=== PATIENT | female | born 1940 | race Caucasian/White ===

== ENCOUNTER → 2020-08-30 09:08 | Outpatient (CLI) | payer MEDICARE, OTHER, SELFPAY ==
[2020-08-30 19:03] LABS: BUN Creatinine Ratio 26.1 (6-22); Blood Urea Nitrogen 18 mg/dL (7-17); Calcium 9.7 mg/dL (8.4-10.2); Carbon Dioxide 35 mmol/L (22-32); Chloride 99 mmol/L (98-107); Estimated Glomerular Filt Rate > 60.0 mL/min (>60); Glucose 103 mg/dL (80-110); HEMOLYSIS < 15 (0-50); Potassium 4.3 mmol/L (3.4-5.1); Sodium 139 mmol/L (137-145)
== END ==
PROVIDERS: Visit Provider Internal Medicine Cardiovascular Disease
DX: R60.0 Localized edema (principal)
CPT/HCPCS: 80048

== ENCOUNTER → 2021-04-01 10:31 | Outpatient (CLI) | payer MEDICARE, SELFPAY ==
[2021-04-01 19:27] LABS: BUN Creatinine Ratio 27.4 (6-22); Blood Urea Nitrogen 20 mg/dL (7-17); Calcium 9.9 mg/dL (8.4-10.2); Carbon Dioxide 39 mmol/L (22-32); Chloride 99 mmol/L (98-107); Estimated Glomerular Filt Rate > 60.0 mL/min (>60); Glucose 121 mg/dL (80-110); HEMOLYSIS 28 (0-50); Potassium 4.5 mmol/L (3.4-5.1); Sodium 138 mmol/L (137-145)
== END ==
PROVIDERS: Visit Provider Internal Medicine Cardiovascular Disease
DX: I48.20 Chronic atrial fibrillation, unspecified (principal)
CPT/HCPCS: 80048

== ENCOUNTER 2021-05-29 10:49 | Emergency (ER) | payer MEDICARE, SELFPAY ==
[2021-05-29] VITALS (10 sets, daily range): BP systolic 122–145; BP diastolic 70–91; PULSE 73–94; RESP 18–30; TEMP 36.6; O2SAT 86–96; BMI 39.3
--- NOTE | 2021-05-29 11:03 | DI.RAD.S_ITS ---
PROCEDURE: XR CHEST 2V INDICATIONS: shortness of breath TECHNIQUE: 2 views of the chest were acquired. COMPARISON: [facility] ([email or web address]), CR, XR CHEST 2V, 05/28/2021, 16:33. FINDINGS: Surgical changes and devices: None. Lungs and pleura: Lungs are clear. No pleural effusions or pneumothorax. Mediastinum: Mediastinal contours are normal. Heart size is normal. Bones and chest wall: No suspicious bony abnormalities. Elevation of the right diaphragm. IMPRESSION: No acute cardiopulmonary abnormality. Dictated by: Roni Guerrero M.D. on 05/29/2021 at 11:40 Approved by: Roni Guerrero M.D. on 05/29/2021 at 11:40
[2021-05-29 11:27] LABS: Add Manual Diff / Slide Review NO; Basophils Absolute Auto 0 /uL (0-100); Basophils Percent Auto 0.3 % (0-2); Eosinophils Absolute Auto 0 /uL (0-450); Eosinophils Percent Auto 0.6 % (2-4); Hematocrit 42.5 % (36-46); Hemoglobin 14.3 g/dL (12.0-16.0); Lymphocytes Absolute Auto 1100 /uL (1100-4500); Lymphocytes Percent Auto 21.2 % (25-40); Mean Corpuscular HGB Conc 33.5 % (30-36); Mean Corpuscular Hemoglobin 33.5 PG (26-34); Monocytes Absolute Auto 500 /uL (0-900); Monocytes Percent Auto 9.5 % (3-14); Neutrophils Absolute Auto 3500 /uL (1500-7000); Neutrophils Percent Auto 68.4 % (50-75); Platelet Count 166 X10^3/uL (150-400); Red Blood Cell Count 4.25 X10^6/uL (4.0-5.2); Red Cell Distribution Width 13.4 % (11.6-14.8); White Blood Cell Count 5.1 X10^3/uL (4.5-11.0)
--- NOTE | 2021-05-29 11:31 | ED.SOB ---
HPI - SOB/Dyspnea General Chief Complaint: Shortness of Breath/Dyspnea Stated Complaint: Difficulty breathing x few days Time Seen by Provider: 05/29/21 11:07 History of Present Illness HPI Narrative: Patient is an 80-year-old female who has history of atrial fibrillation on Xarelto history of congestive heart failure taking torsemide 20-40 mg daily presenting today with increasing shortness of breath. She actually says that she has had increasing shortness of breath over the last few weeks but definitely worse over last few days. She had a chest x-ray done on the urine yesterday had congestive heart failure sent here for further evaluation. She does have increasing shortness of breath with exertion she denies any orthopnea. She has not noted any significant swelling in her legs so she did not think it was congestive heart failure. Her left leg is always more swollen than her right. She has not have productive cough fever or body aches. She denies any hemoptysis. She has no chest pain no palpitations. Patient was seen by Dr. Fleming her product safety head on 03/19/2021 at the time is recommended that she increase her torsemide from 30 mg to 40 mg. She initially had diastolic failure however he thought probably new systolic failure with increasing shortness of breath. Also recommended a nuclear stress test, which was on 03/20/2021 which was read as normal and low risk study Related Data Home Medications Medication Instructions Recorded Confirmed rivaroxaban 20 mg tablet 20 mg PO DAILY 07/14/20 05/28/21 losartan 25 mg tablet 25 mg PO DAILY 07/15/20 05/28/21 metoprolol succinate 50 mg 50 mg PO DAILY 07/15/20 05/28/21 tablet,extended release 24 hr potassium chloride 20 mEq 20 meq PO DAILY 05/28/21 05/28/21 tablet,extended release torsemide 20 mg tablet 40 mg PO DAILY tab 05/28/21 05/28/21 Previous Rx's Medication Instructions Recorded albuterol sulfate 90 mcg/actuation 1 puff INH QID PRN #1 inh 07/13/16 aerosol inhaler (Proventil HFA) mometasone (Asmanex Twisthaler) 440 mcg IH QDAY #60 inh 11/05/16 clobetasol 0.05 % scalp solution 1 applic TOPICAL BID PRN #50 ml 05/26/21 doxycycline hyclate 100 mg tablet 100 mg PO BID 10 Days #20 tab 05/28/21 Allergies Allergy/AdvReac Type Severity Reaction Status Date / Time Penicillins [PENICILLINS] Allergy Severe ANAPHYLAXIS Verified 05/29/21 11:41 rofecoxib [ROFECOXIB] Allergy Severe EDEMA, Verified 05/29/21 11:41 SOB/CHF Review of Systems Review of Systems Narrative: GENERAL: Denies chills, fatigue, malaise, fever, sweats, travel HEENT: Denies sinus pain, ear pain, sore throat, difficulty swallowing, neck pain RESPIRATORY: see HPI CARDIOVASCULAR: Denies chest pain, palpitations, orthopnea, edema GASTROINTESTINAL: Denies nausea, vomiting, abdominal pain, diarrhea, constipation, melena. : Denies dysuria, frequency, incontinence, hematuria, urinary retention, flank pain. MUSCULOSKELETAL: Denies weakness, joint pain, or bony pain SKIN: No rash, no erythema, no pruritus NEUROLOGIC: Denies weakness, dizziness, headache, numbness, change in speech, confusion PSYCHIATRIC: No concerning psychosocial issues. 12 point review of systems is negative except for those stated above and HPI Patient History Medical History Allergies Asthma Cataracts, bilateral (~2014) Chicken pox (~194) Chronic back pain (~2009) Colon polyps (~1999) Foot pain (~2019) Hearing loss (~2014) Hemorrhoid (~1962) History of urinary incontinence (~2009) Measles (~194) Mumps (~194) Obstructive sleep apnea syndrome (10/16/14) Osteoarthritis Rubella (~194) Seborrhea capitis Surgical History Anesthesia History of arthroscopy of both knees History of colectomy (~2009) Presence of artificial knee joint, bilateral Family History Mother Cancer Brother Diabetes mellitus Sister Cancer Social History Smoking Status: Never smoker Smoking Status: Never smoker Exam Initial Vital Signs Initial Vital Signs: Vital Signs Pulse Rate 94 H 05/29/21 11:05 Respiratory Rate 18 05/29/21 11:05 Blood Pressure 133/91 H 05/29/21 11:05 Pulse Oximetry 93 05/29/21 11:05 GENERAL: Alert pleasant 80-year-old female no acute distress in no acute distress. HEENT: Head atraumatic,EOMI, pupils reactive, face symmetric, moist mucous membranes CARDIOVASCULAR: Regular rate and rhythm without murmurs, rubs or gallops. RESPIRATORY: Slight rales at bases no obvious dyspnea or tachypnea speaking in full sentences without difficulty. ABDOMEN: Soft, nontender. Normoactive bowel sounds all 4 quadrants. No guarding or rebound. EXTREMITIES: Normal range of motion, no clubbing. Left leg +2 pitting edema right Neurovascularly intact NEUROLOGICAL: Alert and oriented x4.Normal gait and speech. SKIN: Warm, dry, no laceration, no petechiae, no rashes or lesions. Course Orders Ordered: ED Orders 05/29/21 11:03 XR chest 2V Stat EKG-12 Lead Stat Measure peak expiratory flow ONCE RT Consult Eval and Treat Now 05/29/21 11:18 Complete Blood Count AUTO DIFF Stat Comprehensive Metabolic Panel Stat Lactate (Lactic Acid) Stat NT-proBNP (BNP-Adult 18+) Stat Prothrombin Time INR Stat Troponin & CK Cardiac Panel Stat Discontinued Medications Furosemide (Furosemide 40 Mg/4 Ml Vial) 40 mg IV NOW ONE Stop: 05/29/21 11:59 Last Admin: 05/29/21 12:18 Dose: 40 mg Documented by: ALIYAH Vital Signs Vital signs: Vital Signs - 8 hr 05/29/21 11:34 05/29/21 11:44 05/29/21 12:00 Temperature 97.8 F Pulse Rate 90 81 Respiratory Rate 28 H Blood Pressure Pulse Oximetry 93 96 05/29/21 12:21 05/29/21 12:30 05/29/21 13:32 Temperature Pulse Rate 93 H 73 83 Respiratory Rate 25 H 24 Blood Pressure 145/70 H Pulse Oximetry 86 L 96 96 05/29/21 13:38 Temperature Pulse Rate Respiratory Rate Blood Pressure 133/90 Pulse Oximetry MDM - SOB/Dyspnea Lab Data Result diagrams: 05/29/21 11:18 05/29/21 11:18 Labs: Lab Results 05/29/21 05/29/21 05/29/21 Range/Units 11:18 11:18 11:18 WBC 5.1 (4.5-11.0) X10^3/uL RBC 4.25 (4.0-5.2) X10^6/uL Hgb 14.3 (12.0-16.0) g/dL Hct 42.5 (36-46) % MCV 100.0 (80-100) fL MCH 33.5 (26-34) PG MCHC 33.5 (30-36) % RDW 13.4 (11.6-14.8) % Plt Count 166 (150-400) X10^3/uL Neut % (Auto) 68.4 (50-75) % Lymph % (Auto) 21.2 L (25-40) % [place] % (Auto) 9.5 (3-14) % Eos % (Auto) 0.6 L (2-4) % Baso % (Auto) 0.3 (0-2) % Neut # (Auto) 3500 (6430-0800) /uL Lymph # (Auto) 1100 (9291-7698) /uL [place] # (Auto) 500 (0-900) /uL Eos # (Auto) 0 (0-450) /uL Baso # (Auto) 0 (0-100) /uL PT 19.3 H (10.1-12.7) SECONDS INR 1.7 H (0.9-1.3) Sodium 140 (137-145) mmol/L Potassium 4.2 (3.4-5.1) mmol/L Chloride 102 (98-107) mmol/L Carbon Dioxide 35 H (22-32) mmol/L BUN 23 H (7-17) mg/dL Creatinine 0.74 (0.52-1.04) mg/dL Estimated GFR > 60.0 (>60) mL/min BUN/Creatinine Ratio 31.1 H (6-22) Glucose 106 (80-110) mg/dL Lactate (0.7-2.1) mmol/L Calcium 9.6 (8.4-10.2) mg/dL Total Bilirubin 0.8 (0.2-1.3) mg/dL AST 27 (14-36) IU/L ALT 18 (<35) IU/L Alkaline Phosphatase 57 (38-126) U/L Total Creatine Kinase (30-135) U/L CK-MB (CK-2) CK-MB (CK-2) Rel Index Troponin I (0.01-0.034) ng/mL NT-Pro-B Natriuret Pep 1180 H (<450) pg/mL Total Protein 7.2 (6.3-8.2) g/dL Albumin 4.2 (3.5-5.0) g/dL Globulin 3.0 (1.7-4.1) g/dL Albumin/Globulin Ratio 1.4 (1.0-2.8) 05/29/21 05/29/21 Range/Units 11:18 11:18 WBC (4.5-11.0) X10^3/uL RBC (4.0-5.2) X10^6/uL Hgb (12.0-16.0) g/dL Hct (36-46) % MCV (80-100) fL MCH (26-34) PG MCHC (30-36) % RDW (11.6-14.8) % Plt Count (150-400) X10^3/uL Neut % (Auto) (50-75) % Lymph % (Auto) (25-40) % [place] % (Auto) (3-14) % Eos % (Auto) (2-4) % Baso % (Auto) (0-2) % Neut # (Auto) (1734-8168) /uL Lymph # (Auto) (9681-3069) /uL [place] # (Auto) (0-900) /uL Eos # (Auto) (0-450) /uL Baso # (Auto) (0-100) /uL PT (10.1-12.7) SECONDS INR (0.9-1.3) Sodium (137-145) mmol/L Potassium (3.4-5.1) mmol/L Chloride (98-107) mmol/L Carbon Dioxide (22-32) mmol/L BUN (7-17) mg/dL Creatinine (0.52-1.04) mg/dL Estimated GFR (>60) mL/min BUN/Creatinine Ratio (6-22) Glucose (80-110) mg/dL Lactate 1.4 (0.7-2.1) mmol/L Calcium (8.4-10.2) mg/dL Total Bilirubin (0.2-1.3) mg/dL AST (14-36) IU/L ALT (<35) IU/L Alkaline Phosphatase (38-126) U/L Total Creatine Kinase 29 L (30-135) U/L CK-MB (CK-2) TNP CK-MB (CK-2) Rel Index TNP Troponin I < 0.012 (0.01-0.034) ng/mL NT-Pro-B Natriuret Pep (<450) pg/mL Total Protein (6.3-8.2) g/dL Albumin (3.5-5.0) g/dL Globulin (1.7-4.1) g/dL Albumin/Globulin Ratio (1.0-2.8) Imaging Data Chest x-ray: Radiologist's Impression: PROCEDURE:? XR CHEST 2V ? INDICATIONS:? shortness of breath ? TECHNIQUE:? 2 views of the chest were acquired.? ? COMPARISON:? [facility] ([place]), CR, XR CHEST 2V, 05/28/2021, 16:33. ? FINDINGS:? ? Surgical changes and devices:? None.? ? Lungs and pleura:? Lungs are clear.? No pleural effusions or pneumothorax.? ? Mediastinum:? Mediastinal contours are normal.? Heart size is normal.? ? Bones and chest wall:? No suspicious bony abnormalities.? Elevation of the right diaphragm. ? IMPRESSION:? No acute cardiopulmonary abnormality. ? ? Dictated by: Roni Guerrero M.D. on 05/29/2021 at 11:40 ?? ECG Data Interpretation: Atrial fibrillation rate [address] changes mild artifact noted, no priors MDM Narrative Medical decision making narrative: Patient is having symptoms consistent with congestive heart failure BNP is elevated at 1100 chest x-ray is actually clear she is in no respiratory distress not requiring oxygen. She is already adjusting her torsemide. At this time I recommend she take it twice a day for a couple of days. She is already on anticoagulation unlikely to be pulmonary embolism. She does not have any fever cough or other signs of infection. At this time she overall appears well Discharge Plan Departure Patient Disposition: Home Clinical Impression: Congestive heart failure Instructions: Heart Failure Activity Restrictions/Additional Instructions: *You have been diagnosed with congestive heart failure *What to do: At this time her blood work is overall reassuring. Your not need oxygen at this time. you seemed to have a mild exacerbation of congestive heart failure. *Continue to take medications as directed Increase torsemide to 40 mg twice a day for 3 days only, then resume 40 mg once daily *Follow up with your primary care provider in 2-3 days or call [phone] Call your product safety head to schedule follow-up appointment *Return to ER if you should have increasing chest pain, shortness of breath, fever or any new, worsening or concerning symptoms Prescriptions: No Action albuterol sulfate [Proventil HFA] 90 MCG/PUFF HFA aerosol inhaler 1 puff INH QID PRNQty: 1 5RF mometasone [Asmanex Twisthaler] 220 MCG aerosol powdr breath activated 440 mcg IH QDAY Qty: 60 12RF clobetasol 0.05 % solution 1 applic Topical BID PRN (Reason: seborrhea capitis ) Qty: 50 1RF Rx Instructions: AAA (scalp); apply thin layer to dry patch on scalp twice daily as needed losartan 25 mg tablet 25 mg PO DAILY 0RF metoprolol succinate 50 mg tablet extended release 24 hr 50 mg PO DAILY 0RF rivaroxaban 20 mg tablet 20 mg PO DAILY 0RF Rx Instructions: must administer with evening meal potassium chloride 20 mEq tablet extended release 20 meq PO DAILY 0RF torsemide 20 mg tablet 40 mg PO DAILY 0RF doxycycline hyclate 100 mg tablet 100 mg PO BID 10 Days Qty: 20 0RF Rx Instructions: Take with food, not dairy and take with a full glass of water. Referrals: Miscellaneous,MD Sidney [Primary Care Provider] - Terry Fleming MD [Non-Staff] - Suzy Sifuentes PA-C [[employer]] -
[2021-05-29 11:34] LABS: INR 1.7 (0.9-1.3); Prothrombin Time 19.3 SECONDS (10.1-12.7)
[2021-05-29 11:38] LABS: Alanine Aminotransferase 18 IU/L (<35); Albumin 4.2 g/dL (3.5-5.0); Albumin Globulin Ratio 1.4 (1.0-2.8); Alkaline Phosphatase 57 U/L (38-126); Aspartate Aminotransferase 27 IU/L (14-36); BUN Creatinine Ratio 31.1 (6-22); Bilirubin Total 0.8 mg/dL (0.2-1.3); Blood Urea Nitrogen 23 mg/dL (7-17); Calcium 9.6 mg/dL (8.4-10.2); Carbon Dioxide 35 mmol/L (22-32); Chloride 102 mmol/L (98-107); Creatine Kinase 29 U/L (30-135); Estimated Glomerular Filt Rate > 60.0 mL/min (>60); Glucose 106 mg/dL (80-110); HEMOLYSIS 16 (0-50); Lactate (Lactic Acid) 1.4 mmol/L (0.7-2.1); Potassium 4.2 mmol/L (3.4-5.1); Sodium 140 mmol/L (137-145); Total Protein 7.2 g/dL (6.3-8.2)
[2021-05-29 11:47] LABS: NT-proBNP (BNP-Adult 18+) 1180 pg/mL (<450)
[2021-05-29 11:50] LABS: Troponin I < 0.012 ng/mL (0.01-0.034)
[2021-05-29] MEDS: FUROSEMIDE 40 MG/4 ML VIAL IV (12:18)
== END 2021-05-29 13:46 | disposition home or self-care (01) ==
PROVIDERS: Emergency Provider Emergency Medicine
DX: I50.9 Heart failure, unspecified (principal); Z79.01 Long term (current) use of anticoagulants; Z79.899 Other long term (current) drug therapy
CPT/HCPCS: 36415; 71046; 80053; 82550; 83605; 83880; 84484; 85025; 85610; 93005; 96374; 99284; J1940

== ENCOUNTER → 2021-07-17 11:30 | Outpatient (CLI) | payer MEDICARE, SELFPAY ==
[2021-07-17 18:43] LABS: Add Manual Diff / Slide Review NO; Basophils Absolute Auto 0 /uL (0-100); Basophils Percent Auto 0.4 % (0-2); Eosinophils Absolute Auto 100 /uL (0-450); Eosinophils Percent Auto 1.8 % (2-4); Hemoglobin 14.7 g/dL (12.0-16.0); Lymphocytes Absolute Auto 1100 /uL (1100-4500); Lymphocytes Percent Auto 24.3 % (25-40); Mean Corpuscular HGB Conc 33.5 % (30-36); Mean Corpuscular Hemoglobin 33.8 PG (26-34); Monocytes Absolute Auto 400 /uL (0-900); Monocytes Percent Auto 9.5 % (3-14); Neutrophils Absolute Auto 2800 /uL (1500-7000); Platelet Count 182 X10^3/uL (150-400); Red Blood Cell Count 4.36 X10^6/uL (4.0-5.2); Red Cell Distribution Width 13.1 % (11.6-14.8); White Blood Cell Count 4.4 X10^3/uL (4.5-11.0)
[2021-07-17 19:11] LABS: Vitamin D 25 Hydroxy (D3) 46.2 ng/mL (30.0-100.0)
[2021-07-17 19:17] LABS: Magnesium 2.1 mg/dL (1.6-2.3)
[2021-07-17 19:20] LABS: Alanine Aminotransferase 18 IU/L (<35); Albumin Globulin Ratio 1.4 (1.0-2.8); Alkaline Phosphatase 54 U/L (38-126); Aspartate Aminotransferase 28 IU/L (14-36); BUN Creatinine Ratio 30.9 (6-22); Bilirubin Total 0.9 mg/dL (0.2-1.3); Blood Urea Nitrogen 25 mg/dL (7-17); Calcium 9.1 mg/dL (8.4-10.2); Carbon Dioxide 34 mmol/L (22-32); Chloride 99 mmol/L (98-107); Estimated Glomerular Filt Rate > 60 mL/min (>60); Globulin 2.9 g/dL (1.7-4.1); Glucose 118 mg/dL (80-110); HEMOLYSIS < 15 (0-50); Sodium 141 mmol/L (137-145); Total Protein 6.9 g/dL (6.3-8.2)
[2021-07-17 19:25] LABS: NT-proBNP (BNP-Adult 18+) 890 pg/mL (<450)
[2021-07-17 19:50] LABS: Thyroid Stimulating Hormone 1.94 uIU/mL (0.47-4.68)
[2021-07-17 20:02] LABS: Vitamin B12 373 pg/mL (239-931)
== END ==
PROVIDERS: Nurse Practitioner; Visit Provider Podiatrist
DX: G90.09 Other idiopathic peripheral autonomic neuropathy (principal); I50.32 Chronic diastolic (congestive) heart failure; G62.9 Polyneuropathy, unspecified; I27.0 Primary pulmonary hypertension; I50.30 Unspecified diastolic (congestive) heart failure; L03.115 Cellulitis of right lower limb
CPT/HCPCS: 80053; 82306; 82607; 83735; 83880; 84443; 85025

== ENCOUNTER → 2022-01-13 12:14 | Outpatient (CLI) | payer MEDICARE, SELFPAY ==
[2022-01-13 20:31] LABS: Alanine Aminotransferase 17 IU/L (<35); Albumin 3.8 g/dL (3.5-5.0); Albumin Globulin Ratio 1.3 (1.0-2.8); Alkaline Phosphatase 64 U/L (38-126); Aspartate Aminotransferase 24 IU/L (14-36); BUN Creatinine Ratio 22.7 (6-22); Blood Urea Nitrogen 22 mg/dL (7-17); Calcium 9.2 mg/dL (8.4-10.2); Carbon Dioxide 37 mmol/L (22-32); Chloride 96 mmol/L (98-107); Estimated Glomerular Filt Rate 59 mL/min (>60); Globulin 2.9 g/dL (1.7-4.1); Glucose 146 mg/dL (80-110); HEMOLYSIS < 15 (0-50); Potassium 4.5 mmol/L (3.4-5.1); Sodium 138 mmol/L (137-145); Total Protein 6.7 g/dL (6.3-8.2)
== END ==
PROVIDERS: Visit Provider Nurse Practitioner
DX: I50.32 Chronic diastolic (congestive) heart failure (principal); R06.02 Shortness of breath
CPT/HCPCS: 80053

== ENCOUNTER → 2022-06-30 11:10 | Outpatient (CLI) | payer MEDICARE, SELFPAY | PROVIDERS: PCP Family Medicine; Visit Provider Family Medicine | DX: R32 Unspecified urinary incontinence (principal); R39.89 Other symptoms and signs involving the genitourinary system | CPT/HCPCS: 87086 ==

== ENCOUNTER → 2022-07-28 13:33 | Outpatient (CLI) | payer MEDICARE, SELFPAY ==
[2022-07-28 19:32] LABS: BUN Creatinine Ratio 21.1 (6-22); Blood Urea Nitrogen 20 mg/dL (7-17); Carbon Dioxide 33 mmol/L (22-32); Chloride 97 mmol/L (98-107); Estimated Glomerular Filt Rate > 60 mL/min (>60); Glucose 131 mg/dL (80-110); HEMOLYSIS 28 (0-50); Potassium 4.3 mmol/L (3.4-5.1); Sodium 135 mmol/L (137-145)
== END ==
PROVIDERS: PCP Family Medicine; Visit Provider Nurse Practitioner
DX: I50.32 Chronic diastolic (congestive) heart failure (principal); R06.02 Shortness of breath
CPT/HCPCS: 80048

== ENCOUNTER → 2023-04-01 13:07 | Outpatient (CLI) | payer OTHER, SELFPAY ==
--- NOTE | 2023-04-01 13:08 | DI.MRI.S_ITS ---
PROCEDURE: MR HEAD/BRAIN WO/W CON INDICATIONS: neuropathy and tremor TECHNIQUE: Noncontrast axial T1 spin echo, axial T2 fast spin echo, sagittal and axial FLAIR, coronal T2 fast spin echo, axial gradient echo, axial diffusion and ADC through the brain. After the administration of contrast, axial and coronal and sagittal T1 spin echo with fat saturation through the brain. COMPARISON: None. FINDINGS: Image quality: Excellent. CSF spaces: Basal cisterns are patent. No extra-axial fluid collections. Ventricles are normal in size and shape. Brain: No midline shift. No intracranial bleeds or masses. No abnormal intracranial enhancement. There is cerebral volume loss for age. There is periventricular white matter chronic small vessel ischemic change. The brainstem appears normal. Diffusion-weighted images demonstrate no acute infarct. No chronic ischemic insults. Normal intravascular flow voids are present. Relatively prominent perivascular spaces are noted. Skull and face: Calvarial marrow is normal in signal. Orbits appear normal. Note is made of bilateral lens replacements. Sinuses: Sinuses and mastoids appear clear. IMPRESSION: Brain MRI within normal limits for age, without a cause of the patient's presenting history identified. No masses or abnormal enhancement can be seen. No findings of acute or subacute infarction can be seen. No prior territorial infarct can be seen. Note is made of age-appropriate brain parenchymal volume loss and chronic small vessel ischemic changes. Dictated by: Lucio Pinto M.D. on 04/01/2023 at 15:51 Approved by: Lucio Pinto M.D. on 04/01/2023 at 15:53
== END ==
PROVIDERS: PCP Family Medicine; Referring Provider Family Medicine; Visit Provider Family Medicine
DX: R25.1 Tremor, unspecified (principal); G62.9 Polyneuropathy, unspecified
CPT/HCPCS: 70553; A9579

== ENCOUNTER → 2023-05-13 10:58 | Outpatient (CLI) | payer OTHER, SELFPAY ==
[2023-05-13 20:16] LABS: Alanine Aminotransferase 17 IU/L (<35); Albumin 3.9 g/dL (3.5-5.0); Albumin Globulin Ratio 1.4 (1.0-2.8); Alkaline Phosphatase 63 U/L (38-126); Aspartate Aminotransferase 27 IU/L (14-36); BUN Creatinine Ratio 25.6 (6-22); Bilirubin Total 1.1 mg/dL (0.2-1.3); Blood Urea Nitrogen 21 mg/dL (7-17); Calcium 9.5 mg/dL (8.4-10.2); Carbon Dioxide 32 mmol/L (22-32); Chloride 98 mmol/L (98-107); Estimated Glomerular Filt Rate > 60 mL/min (>60); Globulin 2.8 g/dL (1.7-4.1); Glucose 107 mg/dL (80-110); HEMOLYSIS < 15 (0-50); Potassium 4.3 mmol/L (3.4-5.1); Sodium 139 mmol/L (137-145); Total Protein 6.7 g/dL (6.3-8.2)
[2023-05-13 20:46] LABS: TSH w/ Reflex to FT4 1.42 uIU/mL (0.47-4.68)
[2023-05-13 21:22] LABS: Folate 6.8 ng/mL (2.76-20.0); Vitamin B12 795 pg/mL (239-931)
[2023-05-19 16:01] LABS: ANA Screen, IFA Negative (.)
== END ==
PROVIDERS: PCP Family Medicine; Visit Provider Family Medicine
DX: R25.1 Tremor, unspecified (principal); I27.0 Primary pulmonary hypertension; G56.20 Lesion of ulnar nerve, unspecified upper limb; I50.30 Unspecified diastolic (congestive) heart failure; Z13.220 Encounter for screening for lipoid disorders; R73.9 Hyperglycemia, unspecified
CPT/HCPCS: 80053; 82607; 82746; 84443; 86038

== ENCOUNTER → 2024-06-05 14:05 | Outpatient (CLI) | payer MEDICARE, SELFPAY ==
[2024-06-05 19:23] LABS: Alanine Aminotransferase 20 IU/L (<35); Albumin 4.1 g/dL (3.5-5.0); Albumin Globulin Ratio 1.5 (1.0-2.8); Alkaline Phosphatase 64 U/L (38-126); Aspartate Aminotransferase 31 IU/L (14-36); BUN Creatinine Ratio 12.1 (6-22); Bilirubin Total 0.8 mg/dL (0.2-1.3); Blood Urea Nitrogen 17 mg/dL (7-17); Calcium 9.6 mg/dL (8.4-10.2); Carbon Dioxide 36 mmol/L (22-32); Chloride 94 mmol/L (98-107); Estimated Glomerular Filt Rate 37 mL/min (>60); Globulin 2.8 g/dL (1.7-4.1); Glucose 117 mg/dL (80-110); HEMOLYSIS < 15 (0-50); Potassium 4.4 mmol/L (3.4-5.1); Sodium 137 mmol/L (137-145); Total Protein 6.9 g/dL (6.3-8.2)
== END ==
PROVIDERS: PCP Family Medicine; Visit Provider Nurse Practitioner
DX: I48.21 Permanent atrial fibrillation (principal); Z51.81 Encounter for therapeutic drug level monitoring
CPT/HCPCS: 80053

== ENCOUNTER → 2024-07-04 11:22 | Outpatient (CLI) | payer MEDICARE, SELFPAY ==
[2024-07-04 18:42] LABS: Add Manual Diff / Slide Review NO; Basophils Absolute Auto 0 /uL (0-100); Basophils Percent Auto 0.5 % (0-2); Eosinophils Absolute Auto 100 /uL (0-450); Hematocrit 48.7 % (36-46); Hemoglobin 16.3 g/dL (12.0-16.0); Lymphocytes Absolute Auto 1200 /uL (1100-4500); Lymphocytes Percent Auto 21.3 % (25-40); Mean Corpuscular HGB Conc 33.6 % (30-36); Mean Corpuscular Hemoglobin 34.2 PG (26-34); Mean Corpuscular Volume 101.8 fL (80-100); Monocytes Absolute Auto 500 /uL (0-900); Monocytes Percent Auto 9.4 % (3-14); Neutrophils Absolute Auto 3900 /uL (1500-7000); Neutrophils Percent Auto 67.8 % (50-75); Platelet Count 190 X10^3/uL (150-400); Red Blood Cell Count 4.79 X10^6/uL (4.0-5.2); Red Cell Distribution Width 12.8 % (11.6-14.8); White Blood Cell Count 5.8 X10^3/uL (4.5-11.0)
[2024-07-04 18:50] LABS: Alanine Aminotransferase 19 IU/L (<35); Albumin 4.3 g/dL (3.5-5.0); Albumin Globulin Ratio 1.5 (1.0-2.8); Alkaline Phosphatase 69 U/L (38-126); Aspartate Aminotransferase 29 IU/L (14-36); BUN Creatinine Ratio 26.8 (6-22); Bilirubin Total 1.3 mg/dL (0.2-1.3); Blood Urea Nitrogen 30 mg/dL (7-17); Calcium 9.7 mg/dL (8.4-10.2); Carbon Dioxide 32 mmol/L (22-32); Chloride 94 mmol/L (98-107); Estimated Glomerular Filt Rate 49 mL/min (>60); Globulin 2.8 g/dL (1.7-4.1); Glucose 100 mg/dL (80-110); HEMOLYSIS < 15 (0-50); Potassium 4.2 mmol/L (3.4-5.1); Sodium 136 mmol/L (137-145); Total Protein 7.1 g/dL (6.3-8.2)
[2024-07-04 19:24] LABS: TSH w/ Reflex to FT4 2.01 uIU/mL (0.47-4.68)
[2024-07-04 19:43] LABS: Vitamin B12 600 pg/mL (239-931)
== END ==
PROVIDERS: PCP Family Medicine; Visit Provider Family Medicine
DX: G25.2 Other specified forms of tremor (principal); I48.20 Chronic atrial fibrillation, unspecified; I50.30 Unspecified diastolic (congestive) heart failure; I38 Endocarditis, valve unspecified; N17.9 Acute kidney failure, unspecified; G62.9 Polyneuropathy, unspecified; I11.0 Hypertensive heart disease with heart failure
CPT/HCPCS: 80053; 82607; 84182; 84443; 85025; 86255; 86341

== ENCOUNTER → 2024-07-13 10:33 | Outpatient (CLI) | payer MEDICARE, SELFPAY ==
--- NOTE | 2024-07-13 10:34 | DI.MRI.S_ITS ---
PROCEDURE: MR HEAD/BRAIN WO/W CON INDICATIONS: New tremor, gait instability, TECHNIQUE: Noncontrast axial T1 spin echo, axial T2 fast spin echo, sagittal and axial FLAIR, coronal T2 fast spin echo, axial gradient echo, axial diffusion and ADC through the brain. After the administration of contrast, axial and coronal and sagittal T1 spin echo with fat saturation through the brain. COMPARISON: [facility], , MR HEAD/BRAIN WO/W CON, 04/01/2023, 13:23. FINDINGS: Image quality: Excellent. CSF spaces: Basal cisterns are patent. No extra-axial fluid collections. Ventricles are normal in size and shape. Brain: No midline shift. No intracranial bleeds or masses. No abnormal intracranial enhancement. There is moderate generalized cerebral volume loss, which appears slightly more prominent within the temporal lobes and the parietal lobes than elsewhere.. There is periventricular white matter chronic small vessel ischemic change. The brainstem appears normal. Diffusion-weighted images demonstrate no acute infarct. No chronic ischemic insults. Normal intravascular flow voids are present. Symmetric calcification can be seen involving the basal ganglia, which is considered to be normal for age. Skull and face: Calvarial marrow is normal in signal. Orbits appear normal. Note is made of bilateral lens replacements. Sinuses: Sinuses and mastoids appear clear. IMPRESSION: No imaging explanation is found for this patient's presenting symptoms. No masses or abnormal enhancement can be seen. Moderate generalized brain parenchymal volume loss is seen, which appears more prominent within the temporal lobes and the parietal lobes than elsewhere. Dictated by: Lucio Pinto M.D. on 07/13/2024 at 13:13 Approved by: Lucio Pinto M.D. on 07/13/2024 at 13:15
== END ==
LOC: MRI 10:34
PROVIDERS: PCP Family Medicine; Referring Provider Family Medicine; Visit Provider Family Medicine
DX: G25.2 Other specified forms of tremor (principal); G20.C Parkinsonism, unspecified
CPT/HCPCS: 70553; A9579

== ENCOUNTER → 2024-08-17 10:34 | Outpatient (CLI) | payer MEDICARE, SELFPAY ==
[2024-08-17 19:27] LABS: Cholesterol 179 mg/dL (140-199); Glucose 103 mg/dL (70-99); HDL Cholesterol 44 mg/dL (40-60); LDL Cholesterol Calculated 109 mg/dL (<100); Triglycerides 132 mg/dL (35-150)
[2024-08-17 20:15] LABS: Hep C Virus Ab w/Reflex Quant NEGATIVE s/c (NEGATIVE)
== END ==
PROVIDERS: PCP Family Medicine; Visit Provider Family Medicine
DX: Z13.1 Encounter for screening for diabetes mellitus (principal); Z11.59 Encounter for screening for other viral diseases; Z13.6 Encounter for screening for cardiovascular disorders
CPT/HCPCS: 80061; 82947; 86803

== ENCOUNTER → 2024-10-31 11:54 | Outpatient (CLI) | payer MEDICARE, SELFPAY ==
[2024-10-31 19:24] LABS: Add Manual Diff / Slide Review NO; Hematocrit 45.5 % (36-46); Hemoglobin 15.5 g/dL (12.0-16.0); Lymphocytes Absolute Auto 1100 /uL (1100-4500); Mean Corpuscular HGB Conc 34.1 % (30-36); Mean Corpuscular Hemoglobin 33.9 PG (26-34); Mean Corpuscular Volume 99.5 fL (80-100); Platelet Count 257 X10^3/uL (150-400)
[2024-10-31 19:34] LABS: HEMOLYSIS 34 (0-50); Iron 91 ug/dL (37-170)
[2024-10-31 19:42] LABS: Creatine Kinase 29 U/L (30-135)
[2024-10-31 19:50] LABS: Percent Iron Saturation 33 % (15-50); Total Iron Binding Capacity 277 ug/dL (265-497); Transferrin 212 mg/dL (206-381)
[2024-10-31 20:15] LABS: Ferritin 202 ng/mL (11-264)
[2024-11-01 02:22] LABS: Alanine Aminotransferase 20 IU/L (<35); Albumin 3.8 g/dL (3.5-5.0); Albumin Globulin Ratio 1.2 (1.0-2.8); Alkaline Phosphatase 66 U/L (38-126); Blood Urea Nitrogen 20 mg/dL (7-17); Calcium 9.3 mg/dL (8.4-10.2); Carbon Dioxide 30 mmol/L (22-32); Chloride 93 mmol/L (98-107); Estimated Glomerular Filt Rate > 60 mL/min (>60); Globulin 3.1 g/dL (1.7-4.1); Glucose 142 mg/dL (70-99); HEMOLYSIS 26 (0-50); Potassium 4.3 mmol/L (3.4-5.1); Sodium 134 mmol/L (137-145); Total Protein 6.9 g/dL (6.3-8.2)
== END ==
PROVIDERS: PCP Family Medicine; Visit Provider Family Medicine
DX: T14.8XXA Other injury of unspecified body region, initial encounter (principal); G62.9 Polyneuropathy, unspecified; R53.1 Weakness; I48.20 Chronic atrial fibrillation, unspecified; I10 Essential (primary) hypertension
CPT/HCPCS: 80053; 82550; 82728; 82784; 83540; 83550; 84155; 84165; 85025; 86140; 86334